=== PATIENT | female | born 1985 | race Caucasian/White ===

== ENCOUNTER 2016-12-31 17:25 | Emergency (ER) | payer OTHER ==
--- NOTE | 2016-12-31 20:30 | DIAGNOSTIC IMAGING REPORT ---
PROCEDURE: CT ABDOMEN/PELVIS W/O CONTRAST INDICATION: HEMATURIA TECHNIQUE: Noncontrast axial images were obtained of the entire abdomen and pelvis with sagittal and coronal reformations. COMPARISON: None. FINDINGS: ABDOMEN: Minor left basilar scarring. Normal heart size. Liver, gallbladder, pancreas, spleen, adrenal glands and kidneys are normal. No renal calculi or hydronephrosis. Normal abdominal aorta. Fluid in the ascending colon. Mild mesenteric adenopathy. PELVIS: Appendectomy. Mild sigmoid diverticulosis. Hysterectomy. Normal bladder. Bilateral L5 spondylolysis. IMPRESSION: 1. Fluid in the ascending colon suggestive of enterocolitis. 2. Appendectomy and hysterectomy 3. Results discussed with Zulay Rodrigues All CT scans at this facility use dose modulation, iterative reconstruction, and/or weight-based dosing when appropriate to reduce radiation dose to as low as reasonably achievable.
--- NOTE | 2016-12-31 20:33 | ED NURSING NOTES ---
Clinical Report - Nurses [facility] [place] [address] 12/31/2016 17:28 Patient: COLE ROTHMAN TRIAGE Triage time 18:57. Acuity: LEVEL 3. Chief Complaint: ABDOMINAL PAIN and NAUSEA. Alert. No acute distress. --19:03 Miesha Curiel R.N. 18:57 12/31/16. BP: 123/70. HR: 94. RR: 18. O2 saturation: 97%. Temp: 99 F. Pain level now: 10/23. --19:03 Miesha Curiel R.N. Weight: 84.3 kg stated. Height/Length: 65 inches Per Patient. BMI: 31. --18:58 Miesha Curiel R.N. Medications None. --18:59 Miesha Curiel R.N. Allergies Penicillin. Sulfa Antibiotics. --18:59 Miesha Curiel R.N. History Historian: patient. Accompanied by spouse. Primary physician (Dr. Beatriz Singh). Onset. (2.5 days ago). 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 SOCIAL HX: Heavy tobacco smoker (cigarette)- less than 1 pack per day. No alcohol use or drug use. FUNCTIONAL ASSESSMENT: Functional assessment: no impairments noted. LEARNING NEEDS ASSESSMENT: The learning needs assessment revealed no barriers. ABUSE ASSESSMENT: Abuse assessment: ("yes") The patient was asked "Do you feel safe in your home?". --19:03 Miesha Curiel R.N. PROBLEMS: Dental Caries. Gastroesophageal Reflux Disease. Gastroesophageal Reflux. Abscess. MRSA Infection. Headache. --19:00 Miesha Curiel R.N. ADDITIONAL SURGERIES: Appendectomy. . Hysterectomy. Umbilical Hernia Repair. --19:00 Miesha Curiel R.N. Interventions ID band on patient. To room. --19:03 Miesha Curiel R.N. PHYSICAL ASSESSMENT 19:04 12/31/16. Patient gowned. GENERAL / NEURO / PSYCH: Alert. Oriented X 4. --19: Miesha Curiel R.N. NURSING PROGRESS NOTES :12/31/16. Patient identifiers checked. Call light placed in reach. Bed placed in lowest position. Patient ready for evaluation- chart flagged. --19: Miesha Curiel R.N. 19:12/31/2016 Site #1 started via IV in the left antecubital space with an 20g angiocath, with aseptic technique and good blood return; one attempt. Blood drawn: rainbow set. Labeled in the presence of the patient and sent to the lab. Saline lock flushed with 10 mL saline. --: Lauro Kat Checked patient name and birthdate: family confirmed. Instructions provided to collect clean catch urine and patient verbalized understanding. Clean catch urine collected with return of yellow-colored clear urine; sample sent to lab for urinalysis. Specimen labeled in the presence of the patient. --: Lauro Kat 19:12/31/2016 Toradol IVP 30 mg given over 1 minute(s) via site #1. Allergies verified and confirmed 5 rights. IV patency established. IV site checked: no pain, redness, or swelling. IV flushed thoroughly pre- and post-medication administration. IVP given by RN. --19: Lauro Kat 19:12/31/2016 GI COCKTAIL WHITE (Simethicone) PO 45 mL given. Allergies verified and confirmed 5 rights. --19:29 Lauro Kat DISPOSITION / DISCHARGE 20:50 12/31/2016 Site #1 removed upon discharge. Catheter intact. Bandaid applied. --20:50 Lauro Kat Departure time: 20:51. Condition at departure: improved. No learning barriers present. Discharge instructions provided and reviewed with the patient. Reviewed medication(s) side effects, precautions, dosing and course information. Prescription(s) given to the patient. Follow up contact number with PCP. Patient verbalized understanding. Written instructions provided in Indonesian. No warning instructions, treatment instructions, referrals given to the patient, diet instructions or activity restrictions. No stop smoking instructions. No work note given. The patient was discharged by the nurse practitioner. She was discharged home and accompanied by family. She left the Emergency Department ambulatory and via private vehicle. Family member driving. FALL RISK ASSESSMENT: Fall risk assessment completed. No fall risk identified. --20:52 Lauro Kat 20:50 12/31/16. BP: 126/74. HR: 78. RR: 16. O2 saturation: 99%. Temp: deferred. Pain level now: 0/10. --20:52 Lauro Kat Locked/Released at 12/31/2016 20:52 by Lauro Kat
--- NOTE | 2016-12-31 20:33 | ED NURSING NOTES ---
Clinical Report - Nurses [facility] [place] [address] 12/31/2016 17:28 Patient: COLE ROTHMAN TRIAGE Triage time 18:57. Acuity: LEVEL 3. Chief Complaint: ABDOMINAL PAIN and NAUSEA. Alert. No acute distress. --19:03 Miesha Curiel R.N. 18:57 12/31/16. BP: 123/70. HR: 94. RR: 18. O2 saturation: 97%. Temp: 99 F. Pain level now: 10/23. --19:03 Miesha Curiel R.N. Weight: 84.3 kg stated. Height/Length: 65 inches Per Patient. BMI: 31. --18:58 Miesha Curiel R.N. Medications None. --18:59 Miesha Curiel R.N. Allergies Penicillin. Sulfa Antibiotics. --18:59 Miesha Curiel R.N. History Historian: patient. Accompanied by spouse. Primary physician (Dr. Beatriz Singh). Onset. (2.5 days ago). 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 SOCIAL HX: Heavy tobacco smoker (cigarette)- less than 1 pack per day. No alcohol use or drug use. FUNCTIONAL ASSESSMENT: Functional assessment: no impairments noted. LEARNING NEEDS ASSESSMENT: The learning needs assessment revealed no barriers. ABUSE ASSESSMENT: Abuse assessment: ("yes") The patient was asked "Do you feel safe in your home?". --19:03 Miesha Curiel R.N. PROBLEMS: Dental Caries. Gastroesophageal Reflux Disease. Gastroesophageal Reflux. Abscess. MRSA Infection. Headache. --19:00 Miesha Curiel R.N. ADDITIONAL SURGERIES: Appendectomy. . Hysterectomy. Umbilical Hernia Repair. --19:00 Miesha Curiel R.N. Interventions ID band on patient. To room. --19:03 Miesha Curiel R.N. PHYSICAL ASSESSMENT 19:04 12/31/16. Patient gowned. GENERAL / NEURO / PSYCH: Alert. Oriented X 4. --19: Miesha Curiel R.N. NURSING PROGRESS NOTES :12/31/16. Patient identifiers checked. Call light placed in reach. Bed placed in lowest position. Patient ready for evaluation- chart flagged. --19: Miesha Curiel R.N. 19:12/31/2016 Site #1 started via IV in the left antecubital space with an 20g angiocath, with aseptic technique and good blood return; one attempt. Blood drawn: rainbow set. Labeled in the presence of the patient and sent to the lab. Saline lock flushed with 10 mL saline. --: Lauro Kat Checked patient name and birthdate: family confirmed. Instructions provided to collect clean catch urine and patient verbalized understanding. Clean catch urine collected with return of yellow-colored clear urine; sample sent to lab for urinalysis. Specimen labeled in the presence of the patient. --: Lauro Kat 19:12/31/2016 Toradol IVP 30 mg given over 1 minute(s) via site #1. Allergies verified and confirmed 5 rights. IV patency established. IV site checked: no pain, redness, or swelling. IV flushed thoroughly pre- and post-medication administration. IVP given by RN. --19: Lauro Kat 19:12/31/2016 GI COCKTAIL WHITE (Simethicone) PO 45 mL given. Allergies verified and confirmed 5 rights. --19:29 Lauro Kat DISPOSITION / DISCHARGE 20:50 12/31/2016 Site #1 removed upon discharge. Catheter intact. Bandaid applied. --20:50 Lauro Kat Departure time: 20:51. Condition at departure: improved. No learning barriers present. Discharge instructions provided and reviewed with the patient. Reviewed medication(s) side effects, precautions, dosing and course information. Prescription(s) given to the patient. Follow up contact number with PCP. Patient verbalized understanding. Written instructions provided in Pashto. No warning instructions, treatment instructions, referrals given to the patient, diet instructions or activity restrictions. No stop smoking instructions. No work note given. The patient was discharged by the nurse practitioner. She was discharged home and accompanied by family. She left the Emergency Department ambulatory and via private vehicle. Family member driving. FALL RISK ASSESSMENT: Fall risk assessment completed. No fall risk identified. --20:52 Lauro Kat 20:50 12/31/16. BP: 126/74. HR: 78. RR: 16. O2 saturation: 99%. Temp: deferred. Pain level now: 0/10. --20:52 Lauro Kat Locked/Released at 12/31/2016 20:52 by Lauro Kat
--- NOTE | 2016-12-31 20:33 | ED ORDER SUMMARY ---
..... Patient: COLE ROTHMAN OrderSheet [facility] VisitID: [id number] [address] [place] [address] 31y, F Registration Date/Time: 12/31/2016 ORDER SHEET Weight: 84.3 kg (stated) Allergies: Penicillin, Sulfa Antibiotics GENERAL ORDERS: CBC w Diff Urgent (19:11 12/31/2016 HBivens A.R.N.P.) (Ack 19:17 CHagerty ER Distributor Of Directories) (19:28 TBowen R.N.) CMP Urgent (19:12/31/2016 HBivens A.R.N.P.) (Ack 19:17 CHagerty ER Distributor Of Directories) (19:28 TBowen R.N.) UA-Culture if indicated Urgent (19:12/31/2016 HBivens A.R.N.P.) (Ack 19:17 CHagerty ER Distributor Of Directories) (19:28 TBowen R.N.) Amylase Urgent (19:11 12/31/2016 HBivens A.R.N.P.) (Ack 19:17 CHagerty ER Distributor Of Directories) (19:28 TBowen R.N.) Lipase Urgent (19:11 12/31/2016 HBivens A.R.N.P.) (Ack 19:17 CHagerty ER Distributor Of Directories) (19:28 TBowen R.N.) CT Abd/Pel wo Cont Urgent (20:09 12/31/2016 HBivens A.R.N.P.) (Ack 20:13 CHagerty ER Distributor Of Directories) (20:23 MCampbell) MEDICATION ORDERS: GI Cocktail WHITE PO 30 mL with Lidocaine Viscous Mouth/Throat 15 mL, Maalox Plus Oral 15 mL (19:12/31/2016 HBivens A.R.N.P.) (19:29 TBowen R.N.) IV FLUIDS: Toradol IV 30 mg (NOW) (19:11 12/31/2016 HBivens A.R.N.P.) (19:28 TBowen R.N.) IV Saline Lock (19:12/31/2016 HBivens A.R.N.P.) (Ack 20:07 Jake Restrepo) ORDER SHEET NOTES: [Electronically signed by Kimberly Trujillo R.N. (20:52 12/31/2016)] [Electronically signed by Zulay RodriguesNEldaPElda (22:41 12/31/2016)] [Electronically locked/signed by Kimberly Trujillo R.N. (20:52 12/31/2016)]
--- NOTE | 2016-12-31 20:33 | ED CLINICAL REPORT ---
Clinical Report - Physicians/Mid Levels [facility] [address] [place] [address] 12/31/2016 17:28 Patient: COLE ROTHMAN Time Seen: 19:02; initial patient contact, initial documentation, patient care assumed. Arrived- By private vehicle. Historian- patient. HISTORY OF PRESENT ILLNESS Chief Complaint: ABDOMINAL PAIN. At its maximum, severity described as mild. When seen in the E.D., severity described as mild. Modifying factors- worsened by movement. Not relieved by anything. This started about 2 - 3 days ago. It is described as "pain". No radiation. It is described as located in the epigastric area. The patient has had nausea. No loss of appetite, vomiting or diarrhea. No additional abdominal pain. No recent travel. Similar symptoms previously: None. Recent medical care: The patient was seen recently at this facility in the emergency department. ( txed here on 12/19 for dental issues and tooth pain). REVIEW OF SYSTEMS No constipation, black stools, hematemesis, difficulty with urination or pain with urination. No urinary frequency, bloody stools, fever, chest pain or difficulty breathing. Denies current . All systems otherwise negative, except as recorded above. PAST HISTORY See nurses notes. PROBLEMS: Dental Caries. Gastroesophageal Reflux Disease. Gastroesophageal Reflux. Abscess. MRSA Infection. Headache. --19:00 Miesha Curiel RSamir. ADDITIONAL SURGERIES: Appendectomy. . Hysterectomy. Umbilical Hernia Repair. --19:00 Miesha Curiel RSamir. SOCIAL HISTORY Heavy tobacco smoker. No alcohol use or drug use. No recent travel. Is a local resident. FAMILY HISTORY Negative. ADDITIONAL NOTES The nursing notes have been reviewed with agreement regarding the chief complaint, HPI, ROS, PMH and patient medications and allergies. PHYSICAL EXAM Vital Signs: 12/31/2016 18:57 BP: 123/70. HR: 94. RR: 18. O2 saturation: 97%. Temp: 99 F. Pain level now: 310. Have been reviewed as normal and appear to be correct. Appearance: Alert. Oriented X3. No acute distress. Eyes: Pupils equal, round and reactive to light. Eyes normal inspection. Neck: Normal inspection. Neck supple. CVS: Normal heart rate and rhythm. Heart sounds normal. Pulses normal. Respiratory: No respiratory distress. Breath sounds normal. Chest nontender. Abdomen: Soft and nontender. Bowel sounds normal. No organomegaly. No mass. Back: Normal inspection. Skin: Skin warm and dry. Normal skin color. No rash. Normal skin turgor. Extremities: Extremities exhibit normal ROM. No lower extremity edema. Neuro: Oriented X 3. No motor deficit. No sensory deficit. LABS, X-RAYS, AND EKG Abdominal CT: . IMPRESSION: 1. Fluid in the ascending colon suggestive of enterocolitis. 2. Appendectomy and hysterectomy 3. Results discussed with Zulay Rodrigues All CT scans at this facility use dose modulation, iterative reconstruction, and/or weight-based dosing when appropriate to reduce radiation dose to as low as reasonably achievable. Electronically Final signed by:Edgard Rivera MD 12/31/2016 8:30:06 PM. The study was interpreted by the radiologist and discussed with the radiologist. Interpretation time: 2027. Laboratory Tests: UA-Culture if indicated: (DEVYN: 12/31/2016 19:15) ( MsgRcvd 12/31/2016 19:52) Final results Test Result Flag Units (Reference) URINE COLOR YELLOW URINE APPEARANCE CLEAR URINE GLUCOSE NEGATIVE (NEGATIVE) URINE BILIRUBIN NEGATIVE (NEGATIVE) URINE KETONE 1+ (NEGATIVE) URINE SPECIFIC GRAVITY 1.025 (1.010-1.030) URINE PH 6.0 (5.0-8.0) URINE PROTEIN NEGATIVE (NEGATIVE) URINE UROBILINOGEN 1.0 EU/dL (0.2-1.0) URINE NITRITE NEGATIVE (NEGATIVE) URINE BLOOD TRACE-LYSED (NEGATIVE) URINE LEUK ESTERASE NEGATIVE (NEGATIVE) URINE RBC 5-10 rbc/hpf (0-1) URINE WBC RARE wbc/hpf (0-1) URINE EPITHELIAL CELLS RARE EPI/hpf (0-5) URINE BACTERIA FEW (1+) (NONE SEEN) URINE COMMENT CULT NOT INDICATED 2+ MUCOUSURINE CULTURES ARE SET-UP BASED ON THE FOLLOWING CRITERIA:POSITIVE NITRITEPOSITIVE LEUKOCYTE ESTERASEGREATER THAN 10 WHITE BLOOD CELLSMODERATE (2+) OR GREATER BACTERIA CBC w Diff: (DEVYN: 12/31/2016 19:15) ( MsgRcvd 12/31/2016 19:45) Final results Test Result Flag Units (Reference) WHITE BLOOD COUNT 7.8 K/uL (4.5-11.5) RED BLOOD COUNT 4.65 M/uL (4.00-5.20) HEMOGLOBIN 14.1 gm/dL (12.0-16.0) HEMATOCRIT 41.3 % (36.0-46.0) MEAN CELL VOLUME 89 fL (80-100) MEAN CORPUSCULAR HGB 30 pg (26-34) MEAN CORPUSCULAR HGB CONC 34 g/dL (31-37) RED CELL DISTRIBUTION WIDTH 13.1 % (11.6-14.8) PLATELET COUNT 304 K/uL (150-400) NEUTROPHIL % 62.5 % (50-75) LYMPH % 24.6 L % (25-40) MONO % 10.8 % (3-14) EOSINOPHIL % 1.7 % (0-4) BASOPHIL % 0.4 % (0-2) CMP: (DEVYN: 12/31/2016 19:15) ( MsgRcvd 12/31/2016 20:02) Final results Test Result Flag Units (Reference) GLUCOSE 91 mg/dL (70-110) BUN 9 mg/dL (7-18) CREATININE 0.7 mg/dL (0.6-1.3) Estimated GFR >60 mL/min Estimated GFR- >60 mL/min Note: Persistent reduction over 3 months in eGFR<60 mL/min/1.73 m2 defines CKD. Patients with eGFR values>=60 mL/min/1.73 m2 may also have CKD if evidence ofpersistent proteinuria. Additional information may be foundat www.kidney.org. SODIUM 141 mmol/L (136-145) POTASSIUM 3.8 mmol/L (3.5-5.1) CHLORIDE 103 mmol/L (98-107) CARBON DIOXIDE 27 mmol/L (21-32) CALCIUM 8.2 L mg/dL (8.5-10.1) TOTAL PROTEIN 7.6 g/dL (6.4-8.2) ALBUMIN 3.7 g/dL (3.3-5.0) BILIRUBIN, TOTAL 0.2 mg/dL (0.0-1.0) ALKALINE PHOSPHATASE 88 U/L (46-116) AST (SGOT) 28 U/L (15-37) ALT (SGPT) 46 U/L (12-78) LIPASE 183 U/L (73-393) AMYLASE 61 U/L (25-115) . PROGRESS AND PROCEDURES Course of Care: 1854. Nurse Miesha telling me pt is mad, that pt called administration from [facility] c/o of the wait and that she was watching other pts being taken back before her 19:04 12/31/16. pt has short dominic, nothing alarming, see report for full details 20:10 12/31/16. pt updated with lab results, pt telling me she has been told she has blood in urine several times, always gets abx, but never f/u after to see if the blood was still there, discussed tx options with doing abx now and dc home or do ct to look at kidney, pt wants ct, pt smiling and laughing with visitors, appears more comfortable now. Patient counseled in person regarding the patient's stable condition, test results and diagnosis. 20:31. Differential Diagnosis: I considered gastritis, gastroenteritis, peptic ulcer disease, gastroesophageal reflux disease, diverticulitis, colon cancer, ulcerative colitis, Crohn's disease, small bowel obstruction, obstipation, biliary colic, cholecystitis, cholelithiasis, hepatitis, pancreatitis, common bile duct obstruction, cholangitis, urinary tract infection, ureterolithiasis and viral syndrome as a possible cause of abdominal pain in this patient. This is a partial list of diagnoses considered. Above considerations are based on history, physical exam, reassessment and laboratory data. Differential diagnosis was discussed with patient. Disposition: Discharged home in good and improved condition (20:33). Condition: good and stable. CLINICAL IMPRESSION Acute infectious colitis. INSTRUCTIONS Warnings: GENERAL WARNINGS: Return or contact your physician immediately if your condition worsens or changes unexpectedly, if not improving as expected, or if other problems arise. SPECIFICALLY, return if you develop pain in the abdomen or pelvis, fever, the inability to keep fluids down, blood in vomitus, blood in diarrhea, fainting or lightheadedness. Prescription Medications: Zofran 4 mg: Take 1 orally every six hours as needed for nausea/vomiting. Dispense ten (10). No refills. Substitution is permissible. Cipro 500 mg: take 1 tab orally every 12 hours for 10 days. Dispense twenty (20). No refills. Substitution is permissible. Bentyl 20 mg tablets: take 1 orally every 6 hours as needed. Dispense thirty (30). No refills. Substitution is permissible. Follow-up: Follow up with your doctor in about two days even if well. Call for an appointment. Summary of care provided to patient. Understanding of the discharge instructions verbalized by patient. (Electronically signed by Zulay Rodrigues A.R.N.P. 12/31/2016 22:41)
--- NOTE | 2016-12-31 20:33 | ED ORDER SUMMARY ---
..... Patient: COLE ROTHMAN OrderSheet [facility] VisitID: [id number] [address] [place] [address] 31y, F Registration Date/Time: 12/31/2016 ORDER SHEET Weight: 84.3 kg (stated) Allergies: Penicillin, Sulfa Antibiotics GENERAL ORDERS: CBC w Diff Urgent (19:11 12/31/2016 HBivens A.R.N.P.) (Ack 19:17 CHagerty ER Deputy Chief Magistrate) (19:28 TBowen R.N.) CMP Urgent (19:12/31/2016 HBivens A.R.N.P.) (Ack 19:17 CHagerty ER Deputy Chief Magistrate) (19:28 TBowen R.N.) UA-Culture if indicated Urgent (19:12/31/2016 HBivens A.R.N.P.) (Ack 19:17 CHagerty ER Deputy Chief Magistrate) (19:28 TBowen R.N.) Amylase Urgent (19:11 12/31/2016 HBivens A.R.N.P.) (Ack 19:17 CHagerty ER Deputy Chief Magistrate) (19:28 TBowen R.N.) Lipase Urgent (19:11 12/31/2016 HBivens A.R.N.P.) (Ack 19:17 CHagerty ER Deputy Chief Magistrate) (19:28 TBowen R.N.) CT Abd/Pel wo Cont Urgent (20:09 12/31/2016 HBivens A.R.N.P.) (Ack 20:13 CHagerty ER Deputy Chief Magistrate) (20:23 MCampbell) MEDICATION ORDERS: GI Cocktail WHITE PO 30 mL with Lidocaine Viscous Mouth/Throat 15 mL, Maalox Plus Oral 15 mL (19:12/31/2016 HBivens A.R.N.P.) (19:29 TBowen R.N.) IV FLUIDS: Toradol IV 30 mg (NOW) (19:11 12/31/2016 HBivens A.R.N.P.) (19:28 TBowen R.N.) IV Saline Lock (19:12/31/2016 HBivens A.R.N.P.) (Ack 20:07 Jake Restrepo) ORDER SHEET NOTES: [Electronically signed by Kimberly Trujillo R.N. (20:52 12/31/2016)] [Electronically signed by Zulay RodriguesNEldaPElda (22:41 12/31/2016)] [Electronically locked/signed by Kimberly Trujillo R.N. (20:52 12/31/2016)]
--- NOTE | 2016-12-31 22:41 | ED MAR SUMMARY ---
..... Medication Administration Record [facility] [address] [place] [address] Patient: COLE ROTHMAN Visit ID: [id number] 31y, F Weight: 84.3 kg Height/Length: 65 in BMI: 31 ALLERGIES: Penicillin, Sulfa Antibiotics Given 19:28 12/31/2016 North, R.N. Medication Administered: TORADOL [IVP], Dose: 30 mg IVP over 1 minute(s), Site: #1 left AC. Medication Ordered: Toradol IV 30 mg (NOW). Given 19:29 12/31/2016 North, R.N. Medication Administered: GI COCKTAIL WHITE [PO] (SIMETHICONE), Dose: 45 mL PO. Medication Ordered: GI Cocktail WHITE PO 30 mL with Lidocaine Viscous Mouth/Throat 15 mL, Maalox Plus Oral 15 mL.
--- NOTE | 2016-12-31 22:41 | ED MED RECONCILIATION SUMMARY ---
Patient: COLE ROTHMAN Medication Reconciliation Report [facility] VisitID: [id number] [address] [place] [address] 31y, F Registration Date/Time: 12/31/2016 Weight: 84.3 kg Height/Length: 65 in. BMI: 31.0 ALLERGIES: Penicillin, Sulfa Antibiotics The patient's Home Medications are listed below: NONE. The source(s) of the original Home Medication information: Not obtained. The following Medications were given to the patient in the Emergency Department: Toradol [IVP] IVP 30 mg, administered: 12/31/2016 7:28:00 PM GI COCKTAIL WHITE [PO] PO 45 mL, administered: 12/31/2016 7:29:00 PM The following Medications were prescribed to the patient: Zofran 4 mg: Take 1 orally every six hours as needed for nausea/vomiting. Dispense ten (10). No refills. Substitution is permissible. -- Zulay Rodrigues A.R.N.P. Cipro 500 mg: take 1 tab orally every 12 hours for 10 days. Dispense twenty (20). No refills. Substitution is permissible. -- Zulay Rodrigues A.R.N.P. Bentyl 20 mg tablets: take 1 orally every 6 hours as needed. Dispense thirty (30). No refills. Substitution is permissible. -- Zulay Rodrigues A.R.N.P.
--- NOTE | 2016-12-31 22:41 | ED MED RECONCILIATION SUMMARY ---
Patient: COLE ROTHMAN Medication Reconciliation Report [facility] VisitID: [id number] [address] [place] [address] 31y, F Registration Date/Time: 12/31/2016 Weight: 84.3 kg Height/Length: 65 in. BMI: 31.0 ALLERGIES: Penicillin, Sulfa Antibiotics The patient's Home Medications are listed below: NONE. The source(s) of the original Home Medication information: Not obtained. The following Medications were given to the patient in the Emergency Department: Toradol [IVP] IVP 30 mg, administered: 12/31/2016 7:28:00 PM GI COCKTAIL WHITE [PO] PO 45 mL, administered: 12/31/2016 7:29:00 PM The following Medications were prescribed to the patient: Zofran 4 mg: Take 1 orally every six hours as needed for nausea/vomiting. Dispense ten (10). No refills. Substitution is permissible. -- Zulay Rodrigues A.R.N.P. Cipro 500 mg: take 1 tab orally every 12 hours for 10 days. Dispense twenty (20). No refills. Substitution is permissible. -- Zulay Rodrigues A.R.N.P. Bentyl 20 mg tablets: take 1 orally every 6 hours as needed. Dispense thirty (30). No refills. Substitution is permissible. -- Zulay Rodrigues A.R.N.P.
--- NOTE | 2016-12-31 22:41 | ED DISCHARGE INSTRUCTIONS ---
Patient: COLE ROTHMAN General Instructions [facility] VisitID: [id number] [place] [address] 31y, F Registration Date/Time: 12/31/2016 Acute infectious colitis. INSTRUCTIONS Warnings: GENERAL WARNINGS: Return or contact your physician immediately if your condition worsens or changes unexpectedly, if not improving as expected, or if other problems arise. SPECIFICALLY, return if you develop pain in the abdomen or pelvis, fever, the inability to keep fluids down, blood in vomitus, blood in diarrhea, fainting or lightheadedness. Prescription Medications: Zofran 4 mg: Take 1 orally every six hours as needed for nausea/vomiting. Dispense ten (10). No refills. Substitution is permissible. Cipro 500 mg: take 1 tab orally every 12 hours for 10 days. Dispense twenty (20). No refills. Substitution is permissible. Bentyl 20 mg tablets: take 1 orally every 6 hours as needed. Dispense thirty (30). No refills. Substitution is permissible. Follow-up: Follow up with your doctor in about two days even if well. Call for an appointment. Summary of care provided to patient. Understanding of the discharge instructions verbalized by patient. ADDITIONAL INFORMATION Ondansetron Oral disintegrating tablet What is this medicine? ONDANSETRON (on CHRISTEN se edel) is used to treat nausea and vomiting caused by chemotherapy. It is also used to prevent or treat nausea and vomiting after surgery. How should I use this medicine? These tablets are made to dissolve in the mouth. Do not try to push the tablet through the foil backing. With dry hands, peel away the foil backing and gently remove the tablet. Place the tablet in the mouth and allow it to dissolve, then swallow. While you may take these tablets with water, it is not necessary to do so. Talk to your oxygen furnace operator regarding the use of this medicine in children. Special care may be needed. What side effects may I notice from receiving this medicine? Side effects that you should report to your doctor or health career development manager as soon as possible: allergic reactions like skin rash, itching or hives, swelling of the face, lips, or tongue breathing problems dizziness fast or irregular heartbeat feeling faint or lightheaded, falls fever and chills swelling of the hands and feet tightness in the chest Side effects that usually do not require medical attention (report to your doctor or health career development manager if they continue or are bothersome): constipation or diarrhea headache What may interact with this medicine? Do not take this medicine with any of the following medications: -apomorphine -cisapride -dofetilide -dronedarone -pimozide -thioridazine -ziprasidone This medicine may also interact with the following medications: -carbamazepine -phenytoin -rifampicin -tramadol -other medicines that prolong the QT interval (cause an abnormal heart rhythm) What if I miss a dose? If you miss a dose, take it as soon as you can. If it is almost time for your next dose, take only that dose. Do not take double or extra doses. Where should I keep my medicine? Keep out of the reach of children. Store between 2 and 30 degrees C (36 and 86 degrees F). Throw away any unused medicine after the expiration date. What should I tell my health care provider before I take this medicine? They need to know if you have any of these conditions: heart disease history of irregular heartbeat liver disease low levels of magnesium or potassium in the blood an unusual or allergic reaction to ondansetron, granisetron, other medicines, foods, dyes, or preservatives or trying to get breast-feeding What should I watch for while using this medicine? Check with your doctor or health career development manager as soon as you can if you have any sign of an allergic reaction. Ciprofloxacin Hydrochloride Oral tablet What is this medicine? CIPROFLOXACIN (sip benja FLOX a sin) is a quinolone antibiotic. It is used to treat certain kinds of bacterial infections. It will not work for colds, flu, or other viral infections. How should I use this medicine? Take this medicine by mouth with a glass of water. Follow the directions on the prescription label. Take your medicine at regular intervals. Do not take your medicine more often than directed. Take all of your medicine as directed even if you think your are better. Do not skip doses or stop your medicine early. You can take this medicine with food or on an empty stomach. It can be taken with a meal that contains dairy or calcium, but do not take it alone with a dairy product, like milk or yogurt or calcium-fortified juice. A special MedGuide will be given to you by the pharmacist with each prescription and refill. Be sure to read this information carefully each time. Talk to your oxygen furnace operator regarding the use of this medicine in children. Special care may be needed. What side effects may I notice from receiving this medicine? Side effects that you should report to your doctor or health career development manager as soon as possible: - allergic reactions like skin rash, itching or hives, swelling of the face, lips, or tongue - breathing problems - confusion, nightmares or hallucinations - feeling faint or lightheaded, falls - irregular heartbeat - joint, muscle or tendon pain or swelling - pain or trouble passing urine -persistent headache with or without blurred vision - redness, blistering, peeling or loosening of the skin, including inside the mouth - seizure - unusual pain, numbness, tingling, or weakness Side effects that usually do not require medical attention (report to your doctor or health career development manager if they continue or are bothersome): - diarrhea - nausea or stomach upset - white patches or sores in the mouth What may interact with this medicine? Do not take this medicine with any of the following medications: cisapride droperidol terfenadine tizanidine This medicine may also interact with the following medications: antacids caffeine cyclosporin didanosine (ddI) buffered tablets or powder medicines for diabetes medicines for inflammation like ibuprofen, naproxen methotrexate multivitamins omeprazole phenytoin probenecid sucralfate theophylline warfarin What if I miss a dose? If you miss a dose, take it as soon as you can. If it is almost time for your next dose, take only that dose. Do not take double or extra doses. Where should I keep my medicine? Keep out of the reach of children. Store at room temperature below 30 degrees C (86 degrees F). Keep container tightly closed. Throw away any unused medicine after the expiration date. What should I tell my health care provider before I take this medicine? They need to know if you have any of these conditions: -bone problems -cerebral disease -joint problems -irregular heartbeat -kidney disease -liver disease -myasthenia gravis -seizure disorder -tendon problems -an unusual or allergic reaction to ciprofloxacin, other antibiotics or medicines, foods, dyes, or preservatives - or trying to get -breast-feeding What should I watch for while using this medicine? Tell your doctor or health career development manager if your symptoms do not improve. Do not treat diarrhea with over the counter products. Contact your doctor if you have diarrhea that lasts more than 2 days or if it is severe and watery. You may get drowsy or dizzy. Do not drive, use machinery, or do anything that needs mental alertness until you know how this medicine affects you. Do not stand or sit up quickly, especially if you are an older patient. This reduces the risk of dizzy or fainting spells. This medicine can make you more sensitive to the sun. Keep out of the sun. If you cannot avoid being in the sun, wear protective clothing and use sunscreen. Do not use sun lamps or tanning beds/booths. Avoid antacids, aluminum, calcium, iron, magnesium, and zinc products for 6 hours before and 2 hours after taking a dose of this medicine. Dicyclomine Hydrochloride Oral tablet What is this medicine? DICYCLOMINE (dye MARIA TERESA chinchilla) is used to treat bowel problems including irritable bowel syndrome. How should I use this medicine? Take this medicine by mouth with a glass of water. Follow the directions on the prescription label. It is best to take this medicine on an empty stomach, 30 minutes to 1 hour before meals. Take your medicine at regular intervals. Do not take your medicine more often than directed. Talk to your oxygen furnace operator regarding the use of this medicine in children. Special care may be needed. While this drug may be prescribed for children as young as 6 months of age for selected conditions, precautions do apply. Patients over 65 years old may have a stronger reaction and need a smaller dose. What side effects may I notice from receiving this medicine? Side effects that you should report to your doctor or health career development manager as soon as possible: agitation, nervousness, confusion difficulty swallowing dizziness, drowsiness fast or slow heartbeat hallucinations pain or difficulty passing urine Side effects that usually do not require medical attention (report to your doctor or health career development manager if they continue or are bothersome): constipation headache nausea or vomiting sexual difficulty What may interact with this medicine? amantadine antacids benztropine digoxin disopyramide medicines for allergies, colds and breathing difficulties medicines for alzheimer's disease medicines for anxiety or sleeping problems medicines for depression or psychotic disturbances medicines for diarrhea medicines for pain metoclopramide tegaserod What if I miss a dose? If you miss a dose, take it as soon as you can. If it is almost time for your next dose, take only that dose. Do not take double or extra doses. Where should I keep my medicine? Keep out of the reach of children. Store at room temperature below 30 degrees C (86 degrees F). Protect from light. Throw away any unused medicine after the expiration date. What should I tell my health care provider before I take this medicine? They need to know if you have any of these conditions: difficulty passing urine esophagus problems or heartburn glaucoma heart disease, or previous heart attack myasthenia gravis prostate trouble stomach infection, or obstruction ulcerative colitis an unusual or allergic reaction to dicyclomine, other medicines, foods, dyes, or preservatives or trying to get breast-feeding What should I watch for while using this medicine? You may get drowsy, dizzy, or have blurred vision. Do not drive, use machinery, or do anything that needs mental alertness until you know how this medicine affects you. To reduce the risk of dizzy or fainting spells, do not sit or stand up quickly, especially if you are an older patient. Alcohol can make you more drowsy, avoid alcoholic drinks. Stay out of bright light and wear sunglasses if this medicine makes your eyes more sensitive to light. Avoid extreme heat (hot tubs, saunas). This medicine can cause you to sweat less than normal. Your body temperature could increase to dangerous levels, which may lead to heat stroke. Antacids can stop this medicine from working. If you get an upset stomach and want to take an antacid, make sure there is an interval of at least 1 to 2 hours before or after you take this medicine. Your mouth may get dry. Chewing sugarless gum or sucking hard candy, and drinking plenty of water may help. Contact your doctor if the problem does not go away or is severe. You have been given the following additional information: Ondansetron Oral disintegrating tablet Ciprofloxacin Hydrochloride Oral tablet Dicyclomine Hydrochloride Oral tablet (Electronically signed by Zulay Rodrigues A.R.N.P. 12/31/2016 22:41)
--- NOTE | 2016-12-31 22:41 | ED MAR SUMMARY ---
..... Medication Administration Record [facility] [address] [place] [address] Patient: COLE ROTHMAN Visit ID: [id number] 31y, F Weight: 84.3 kg Height/Length: 65 in BMI: 31 ALLERGIES: Penicillin, Sulfa Antibiotics Given 19:28 12/31/2016 [place], R.N. Medication Administered: TORADOL [IVP], Dose: 30 mg IVP over 1 minute(s), Site: #1 left AC. Medication Ordered: Toradol IV 30 mg (NOW). Given 19:29 12/31/2016 [place], R.N. Medication Administered: GI COCKTAIL WHITE [PO] (SIMETHICONE), Dose: 45 mL PO. Medication Ordered: GI Cocktail WHITE PO 30 mL with Lidocaine Viscous Mouth/Throat 15 mL, Maalox Plus Oral 15 mL.
== END 2016-12-31 20:40 | disposition home or self-care (01) ==
LOC: ED SRH 17:25
DX: A09 Infectious gastroenteritis and colitis, unspecified (principal); K21.9 Gastro-esophageal reflux disease without esophagitis; F17.210 Nicotine dependence, cigarettes, uncomplicated; Z88.0 Allergy status to penicillin; Z88.1 Allergy status to other antibiotic agents
CPT/HCPCS: 90004; 90100; 92235; 92530; 95059